=== PATIENT | male | born 1965 | race Caucasian/White ===

== ENCOUNTER 2019-07-23 10:28 | Outpatient (CLI) | payer BC, SELFPAY ==
--- NOTE | 2019-07-23 10:09 | DI.RAD_ITS ---
EXAM: XR SHOULDER LT COMPLETE 2+V INDICATION: Pain. COMPARISON: No exams were available for comparison TECHNIQUE: 2D digital imaging was performed. FINDINGS: There is spurring at the AC joint undersurface of the acromion as well as greater tuberosity. There i s minimal spurring at the glenoid. The glenohumeral joint space is well maintained. IMPRESSION: [id number] degenerative changes.
== END 2019-07-23 10:48 ==
PROVIDERS: PCP Neuromusculoskeletal Medicine & OMM; Visit Provider Student in an Organized Health Care Education/Training Program
DX: M25.512 Pain in left shoulder (principal); M19.012 Primary osteoarthritis, left shoulder
CPT/HCPCS: 73030

== ENCOUNTER 2019-09-05 03:14 | Outpatient (CLI) | payer BC, SELFPAY ==
--- NOTE | 2019-09-05 07:00 | DI.MRI_ITS ---
EXAM: MR UPPER JOINT LT WO CLINICAL HISTORY: Traumatic left shoulder pain,WEAKNESS, STIFFNESS,BURSITIS,SLAP LESION,M75.5,s43.4 32a,m75.02,m75.22 TECHNIQUE: Multiplanar multisequence MRI was performed. COMPARISON: None. FINDINGS: BONES: There is subchondral edema seen in the greater tuberosity in the posterolateral humeral head. Cystic changes are also seen in the posterior inferior glenoid. JOINTS: Mild hypertrophic changes are seen at the acromioclavicular joint consistent with osteoarthro sis. The glenohumeral joint is normal. TENDONS: Supraspinatus: There is an articular surface large partial tear of the supraspinatus tendon at its in sertion site anteriorly. Infraspinatus: There is a small partial articular surface tear at the insertion site. Subscapularis: There is increased signal seen in the subscapularis tendon superiorly. This may repre sent a partial tear or tendinosis. Teres Minor: Unremarkable. Biceps and [place]: There is thickening and hyperintense signal seen in the biceps tendon suspicious f or partial tear or tendinosis. MUSCLES: Unremarkable. GLENOID LABRUM: There is hyperintense signal seen in the superior labrum at the biceps anchor junctio n. This may represent a tear. (Series 7001, image 14). SOFT TISSUES: Unremarkable. LIGAMENTS: Unremarkable. OTHER: Subacromial and subdeltoid bursae are unremarkable. IMPRESSION: 1. Large articular surface tear of the supraspinatus tendon anteriorly at its insertion site. 2. Small partial articular surface tear of the infraspinatus tendon at its insertion site. 3. Increased signal seen in the subscapularis tendon superiorly and the biceps tendon which may repre sent partial tear or tendinosis. 4. Hyperintense signal seen in the superior labrum at its junction with the biceps anchor which may r epresent tear versus degeneration. DATA REPOSITORY:
== END 2019-09-05 03:34 ==
PROVIDERS: PCP Neuromusculoskeletal Medicine & OMM; Visit Provider Student in an Organized Health Care Education/Training Program
DX: M25.512 Pain in left shoulder (principal); M75.102 Unspecified rotator cuff tear or rupture of left shoulder, not specified as traumatic; M75.02 Adhesive capsulitis of left shoulder; M75.22 Bicipital tendinitis, left shoulder; M75.52 Bursitis of left shoulder; S43.432A Superior glenoid labrum lesion of left shoulder, initial encounter; M19.012 Primary osteoarthritis, left shoulder
CPT/HCPCS: 73221

== ENCOUNTER 2020-04-27 09:33 | Outpatient (CLI) | payer BC, SELFPAY ==
--- NOTE | 2020-04-27 08:30 | DI.RAD_ITS ---
EXAM: XR FOOT LT COMPLETE CLINICAL HISTORY: Left foot pain. TECHNIQUE: 2D digital imaging was performed. COMPARISON: No exams were available for comparison FINDINGS: BONES: No acute fracture is present. No bony destructive lesion is seen. There is a small spur at the plantar surface of the calcaneus. JOINTS: No dislocation present. SOFT TISSUE: Normal. IMPRESSION: No acute abnormality. DATA REPOSITORY: RADIATION DOSE DELIVERED:
== END 2020-04-27 09:53 ==
PROVIDERS: PCP Neuromusculoskeletal Medicine & OMM; Referring Provider Neuromusculoskeletal Medicine & OMM; Visit Provider Student in an Organized Health Care Education/Training Program
DX: M79.672 Pain in left foot (principal)
CPT/HCPCS: 73630

== ENCOUNTER → 2021-12-21 01:35 | Outpatient (CLI) | payer BC, SELFPAY ==
[2021-12-21] MEDS: Barium Sulfate 2% W/V-Berry Smoothie 450 ML BTL 900 ML PO (08:49)
[2021-12-21 08:56] LABS: CREATININE 0.8 mg/dL (0.70-1.30)
--- NOTE | 2021-12-21 09:30 | DI.CT_ITS ---
Exam(s) CT ABDOMEN PELVIS W EXAM: CT ABDOMEN PELVIS W CLINICAL HISTORY: PROSTATE CA, C61. TECHNIQUE: Imaging Protocol: Axial computed tomography images with coronal and sagittal reformatted images were created and reviewed CONTRAST MATERIAL: Intravenous: Omnipaque 100cc Oral: Yes. Oral contrast was administered bowel opacification COMPARISON: No exams were available for comparison FINDINGS: VISUALIZED LUNG BASES: There is some atelectasis in the lingular segment of the left lung and right m iddle lobe. Mild increased benign-appearing markings are noted in the right lower lobe. There are n o pleural effusions.. ABDOMEN: There is no ascites. LIVER: Liver is hypodense implying steatosis. There are no discrete focal hepatic lesions evident. GALLBLADDER/BILIARY: No obvious gallbladder pathology. CBD is not dilated. PANCREAS: No evidence of pancreatic mass nor dilatation of the pancreatic duct. SPLEEN: Spleen is not enlarged. No obvious intrasplenic lesions. ADRENALS: There are no significant adrenal masses. KIDNEYS:No cysts evident. No solid renal masses. No calculi nor hydronephrosis.. ABDOMINAL AORTA: Abdominal aorta is not enlarged. LYMPH NODES:There is no retroperitoneal nor paraaortic adenopathy. ABDOMINAL WALL: No evidence of significant anterior abdominal wall nor inguinal hernia. GI: There is no evidence of bowel obstruction, free air, nor abscess. PELVIS: GI: Cecum is mobile. Appendix appears unremarkable.No evidence of sigmoid diverticulitis. LYMPH NODES: Anterior abdominal wall umbilical fat containing hernia. No bowel loops seen within the hernia sac. REPRODUCTIVE: . Prostate gland is enlarged and lobulated. It impinges upon the base of the urinary bladder. URINARY BLADDER: Not distended. OSSEOUS: No significant osseous lesions. IMPRESSION: 1. Enlarged lobulated prostate gland which impinges upon the bladder base. The bladder itself is not distended. No bladder diverticuli evident. 2. No obturator nor other intrapelvic adenopathy. 3. Anterior abdominal wall fat containing hernia. No bowel loops therein. No bowel obstruction. 4. RADIATION DOSE DELIVERED: 2,558mGy.cm Total DLP DATA REPOSITORY: All CT scans at this facility are submitted to the National Radiology Data Registry (NRDR) Dose Index Registry (DIR) with the [employer] ([employer]). RADIATION OPTIMIZATION: All CT scans at this facility use at least one of these dose optimization te chniques: automated exposure control; mA and/or kV adjustment per patient size (includes targeted exa ms where dose is matched to clinical indication); or iterative reconstruction.
[2021-12-21] MEDS: Omnipaque 350 MG/ML 100 ML BTL IJ (10:20)
[2021-12-21] MEDS: Normal Saline Flush 10 ML SYR IVP (10:22)
--- NOTE | 2021-12-21 11:00 | DI.NM_ITS ---
Exam(s) NM BONE SCAN WHOLE BODY GRP EXAM: NM BONE SCAN WHOLE BODY GRP CLINICAL HISTORY: PROSTATE CA, C61. TECHNIQUE: Injected Dose: 25 mCi Tc-99m MDP Delayed Images: 2-3 hours. COMPARISON: No exams were available for comparison FINDINGS: There is significant uptake seen on both sides of the medial compartment of left knee, consistent wit h degenerative change at this level. Lesser amount of the same seen in the opposite-right knee. No abnormal uptake in the hips and pelvis and spinal column with the exception of lower cervical spine w hich is most probably degenerative. No abnormal rib uptake. Focal uptake at the metacarpophalangeal joints of the hand probably. IMPRESSION: 1. No evidence of osseous metastatic disease. Findings as above. DATA REPOSITORY:
== END ==
PROVIDERS: PCP Neuromusculoskeletal Medicine & OMM; Visit Provider Internal Medicine
DX: C61 Malignant neoplasm of prostate (principal); K43.9 Ventral hernia without obstruction or gangrene; N40.0 Benign prostatic hyperplasia without lower urinary tract symptoms
CPT/HCPCS: 78306; 74177; 82565; J3490

== ENCOUNTER 2024-11-05 16:23 | Outpatient (CLI) | payer OTHER, SELFPAY | END 2024-11-05 16:24 | disposition home or self-care (01) | LOC: LBO 16:28 | PROVIDERS: PCP Physician Assistant Medical; Visit Provider Nurse Practitioner Gerontology | DX: C61 Malignant neoplasm of prostate (principal) | CPT/HCPCS: 36415; 84153 ==

== ENCOUNTER 2025-05-12 00:41 | Outpatient (CLI) | payer OTHER, SELFPAY | END 2025-05-12 00:42 | disposition home or self-care (01) | LOC: LBO 00:42 | PROVIDERS: PCP Physician Assistant Medical; Visit Provider Nurse Practitioner Gerontology | DX: C61 Malignant neoplasm of prostate (principal) | CPT/HCPCS: 36415; 84153 ==